=== PATIENT | female | born 1975 | race Caucasian/White ===

== ENCOUNTER 2020-09-06 08:21 | Outpatient (CLI) | payer BC, OTHER ==
[2020-09-06] MEDS ORDERED: TRAM50TA2 PO (09:27)
[2020-09-06] MEDS ORDERED: ESCI5TAB25 PO (09:27)
[2020-09-06] MEDS ORDERED: ERGO500017 PO (09:27)
[2020-09-06] MEDS ORDERED: LEVO137T3 PO (09:27)
[2020-09-06] MEDS ORDERED: ZOLP12.52 PO (09:27)
[2020-09-06 09:38] LABS: BASOPHILS % (AUTO) 1 % (0-1); EOSINOPHILS % (AUTO) 1 % (1-7); LYMPHOCYTES % (AUTO) 26 % (22-44); MEAN CORPUSCULAR HGB CONC 33.3 g/dL (32.4-35.8); MEAN PLATELET VOLUME 7.9 fL (7.4-10.4); MONOCYTES % (AUTO) 7 % (2-9); NEUTROPHILS % (AUTO) 66 % (42-75); PLATELET COUNT 255 x10^3/uL (130-400); RED BLOOD COUNT 4.65 x10^6/uL (3.82-5.3); RED CELL DISTRIBUTION WIDTH 13.4 % (9.6-15.2)
[2020-09-06 09:40] LABS: ANION GAP 5 mmol/L (5-15); CALCIUM 8.8 mg/dL (8.5-10.1); CHLORIDE 108 mmol/L (98-107)
[2020-09-06 09:41] LABS: CREATININE 0.59 mg/dL (0.55-1.02)
[2020-09-06 10:08] LABS: MD SCAN
== END 2020-09-06 23:59 | disposition home or self-care (01) ==
LOC: STAR 08:21
PROVIDERS: ATTEND Orthopaedic Surgery
DX: Z01.812 Encounter for preprocedural laboratory examination (principal); Z20.822 Contact with and (suspected) exposure to COVID-19; M54.12 Radiculopathy, cervical region
CPT/HCPCS: 80048; 85025; 87635

== ENCOUNTER 2020-09-12 12:11 | Observation (INO) | payer BC ==
[~2020-09-12] VITALS: Ht 165.1 cm; Wt 71.0 kg
[~2020-09-12 12:11] MED LIST: ERGO500017 PO; ESCI5TAB8 PO; LEVO137T3 PO; TRAM50TA2 PO; ZOLP12.52 PO
[2020-09-12] MEDS ORDERED: CHLORHEXIDINE 15 ML UDC MM ONE (12:30)
[2020-09-12] MEDS ORDERED: LACTATED RINGERS 1,000 ML IV SCH (12:30)
[2020-09-12] MEDS ORDERED: CHLORHEXIDINE 15 ML UDC MM STA (12:55)
[2020-09-12 13:17] LABS: HCG UR SG 1.029 (1.003-1.030)
[2020-09-12] MEDS ORDERED: MIDAZOLAM 1 MG/ML, 2ML ONE (13:42)
[2020-09-12] MEDS ORDERED: CEFAZOLIN 1,000 MG ONE (13:43)
[2020-09-12] MEDS ORDERED: FENTANYL PF 250 MCG/5ML ONE ×3 (13:43→15:31)
[2020-09-12] MEDS ORDERED: GLYCOPYRROLATE 0.2MG/1ML, 5ML ONE (13:43)
[2020-09-12] MEDS ORDERED: ROCURONIUM 10MG/ML,5ML ONE (13:43)
[2020-09-12] MEDS ORDERED: PROPOFOL 10 MG/ML, 20ML ONE (13:43)
[2020-09-12] MEDS ORDERED: NEOSTIGMINE 1 MG/ML, 10ML ONE (13:43)
[2020-09-12] MEDS ORDERED: ONDANSETRON 2MG/ML, 2ML ONE (13:43)
[2020-09-12] MEDS ORDERED: PROPOFOL 100 ML ONE (14:08)
[2020-09-12] MEDS ORDERED: THROMBIN 5,000 UNIT VIAL TP ONE (14:11)
[2020-09-12] MEDS ORDERED: BACITRACIN 50,000 UNIT ONE (14:11)
[2020-09-12] MEDS ORDERED: BUPIVACAINE/PF 0.25% ONE (14:11)
[2020-09-12] MEDS ORDERED: BUPIVACAINE/PF 0.5% ONE (14:11)
[2020-09-12] MEDS ORDERED: EPINEPHRINE 1 MG/ML, 1ML ONE (14:11)
[2020-09-12] MEDS ORDERED: THROMBIN 20,000 UNIT VIAL TP ONE (14:28)
[2020-09-12] MEDS ORDERED: PHENYLEPHRINE 10 MG/ML ONE (14:29)
[2020-09-12] MEDS ORDERED: DEXAMETHASONE 4 MG/ML, 5ML ONE (14:29)
[2020-09-12] MEDS ORDERED: FENTANYL PF 100 MCG/2ML IV PRN (14:30)
[2020-09-12] MEDS ORDERED: HALOPERIDOL 5 MG/ML IV PRN (14:30)
[2020-09-12] MEDS ORDERED: hydrALAzine 20 MG/ML, 1ML IV PRN (14:30)
[2020-09-12] MEDS ORDERED: PROMETHAZINE 25 MG/ML, 1ML IVPush PRN (14:30)
[2020-09-12] MEDS ORDERED: LABETALOL 5MG/ML, 20ML IV PRN (14:30)
[2020-09-12] MEDS ORDERED: morphine SULFATE 10 MG/ML, 1ML IVPush PRN (14:30)
[2020-09-12] MEDS ORDERED: ACETAMINOPHEN 325 MG TABLET PO PRN (14:30)
[2020-09-12] MEDS ORDERED: HYDROmorphone 1 MG/ML, 1ML INJ IVPush PRN ×2 (14:30→17:00)
[2020-09-12] MEDS ORDERED: MEPERIDINE/PF 25MG/0.5ML IVPush PRN (14:30)
[2020-09-12] MEDS ORDERED: OXYcodone 5 MG/5 ML ORAL.SOL UDC PO PRN (14:30)
[2020-09-12] MEDS ORDERED: MAGNESIUM HYDROXIDE 8%, 30ML UDC PO PRN (17:00)
[2020-09-12] MEDS ORDERED: DIPHENHYDRAMINE 50 MG CAPSULE PO PRN (17:00)
[2020-09-12] MEDS ORDERED: BISACODYL 10 MG SUPP PR PRN (17:00)
[2020-09-12] MEDS ORDERED: PHARMACY MAY ADJ FOR RENAL FX MC PRN (17:00)
[2020-09-12] MEDS ORDERED: CYCLOBENZAPRINE 10 MG TABLET PO PRN (17:00)
[2020-09-12] MEDS ORDERED: HYDROcodone/APAP 10/325 MG TABLET PO PRN (17:00)
[2020-09-12] MEDS ORDERED: ONDANSETRON 2MG/ML, 2ML IVPush PRN (17:00)
[2020-09-12] MEDS ORDERED: SENNA/DOCUSATE TABLET PO PRN (17:00)
[2020-09-12 18:04] VITALS: BP 113/60
[2020-09-12 19:31] VITALS: BP 113/59
[2020-09-12] MEDS: D5%-0.9% NACL+KCL 20MEQ 1,000 ML IV SCH (21:37)
[2020-09-12] MEDS: HYDROcodone/APAP 5/325 TABLET PO PRN (22:40)
[2020-09-12] MEDS: CEFAZOLIN PMX 1GM/50ML 50 ML IVPB SCH (22:42)
[2020-09-12] MEDS ORDERED: DEXAMETHASONE 4 MG/ML, 1ML IV ONE (23:45)
[2020-09-13 00:16] VITALS: BP 111/59
[2020-09-13] MEDS: HYDROcodone/APAP 5/325 TABLET PO PRN ×2 (03:04→07:56)
[2020-09-13 03:59] VITALS: BP 95/58
[2020-09-13] MEDS ORDERED: LEVOTHYROXINE 137 MCG TABLET PO SCH (06:00)
[2020-09-13] MEDS: CEFAZOLIN PMX 1GM/50ML 50 ML IVPB SCH (06:36)
[2020-09-13] MEDS ORDERED: DEXAMETHASONE 4 MG/ML, 1ML IV ONE (07:00)
[2020-09-13] MEDS ORDERED: DEXAMETHASONE 8 MG in SODIUM CHLORIDE 0.9% 50 ML IV SCH (07:00)
[2020-09-13 07:41] VITALS: BP 98/63
[2020-09-13] MEDS: D5%-0.9% NACL+KCL 20MEQ 1,000 ML IV SCH (10:10)
== END 2020-09-13 10:38 | disposition home or self-care (01) ==
LOC: OUT 12:11 → ORIP 16:32 → 4NE 17:55 → DCLOUNGE 09-13 10:32
PROVIDERS: ADMIT Orthopaedic Surgery; ATTEND Orthopaedic Surgery
DX: M54.12 Radiculopathy, cervical region (principal); Z20.822 Contact with and (suspected) exposure to COVID-19; E03.9 Hypothyroidism, unspecified; K21.9 Gastro-esophageal reflux disease without esophagitis; Z79.899 Other long term (current) drug therapy
CPT/HCPCS: 22861; 72040; 76000; 81025; 87635; 95938; 95941; 96361; 96365; 96366; 96375; 97161; 97165; C1776; G0378; J0171; J0690; J1100; J2250; J2370; J2405; J2704; J2710; J3010; J3480; 80048; 85025